=== PATIENT | male | born 1995 | race Caucasian/White ===

== ENCOUNTER → 2022-10-22 | Outpatient (CLI) | payer MEDICAID, SELFPAY ==
[2022-10-22 12:04] LABS: Absolute Lymphocyte Count 2.53 X10^3/uL (0.83-4.51); Absolute Neutrophil Count 5.1 X10^3/uL (2.0-7.7); Basophil# 0.05 X10^3/uL; Basophil% 0.6 % (0-1); Eosinophil# 0.53 X10^3/uL; Hematocrit 42.4 % (40-54); Lymphocyte # 2.53 X10^3/ul (0.83-4.51); Lymphocyte % 28.6 % (19-41); Mean Corpuscular Hgb 30.5 pg (27.0-32.0); Mean Corpuscular Volume 92.4 fL (80-94); Mean Platelet Vol. 8.7 fl (6.2-12.0); Monocyte# 0.55 X10^3/uL; Monocyte% 6.2 % (0-10); NRBC Flagged by Analyzer 0 % (0-5); Neutrophil # 5.13 X10^3/uL (2.7-7.7); Neutrophil % 57.9 % (47-70); Platelet Count 368 K/mm3 (150-450); RBC Distribution Width CV 12.7 % (11.6-14.6); RBC Distribution Width SD 43.3 fl (35.1-43.9); Red Blood Count 4.59 M/mm3 (4.6-6.2); White Blood Count 8.9 K/mm3 (4.4-11.0)
[2022-10-22 12:27] LABS: Hemoglobin A1c 5.4 % (3.8-5.6)
[2022-10-22 12:43] LABS: ALB/GLOB Ratio 1.2 RATIO (0.9-2.4); AST(SGOT) 28 U/L (15-37); Alanine Aminotransfer ALT/SGPT 76 U/L (16-61); Albumin, Serum 3.8 g/dL (3.2-5.0); Alkaline Phosphatase 74 U/L (45-117); Anion Gap 6 (5-15); BUN 14 mg/dL (7-18); BUN/Creat Ratio 15.2 RATIO (10-20); Calcium,Total 8.9 mg/dL (8.5-10.1); Chloride 107 mmol/L (98-107); Cholesterol 182 mg/dL (200); Creatinine, Serum 0.92 mg/dL (0.70-1.30); EST Glomerular Filtration Rate 103 mL/min (>60); Est Glom Filt Rate - Afr Amer 125 mL/min (>60); Globulin 3.1 g/dL (2.2-4.2); Glucose 99 mg/dL (74-106); High Density Lipoprotein 22 mg/dL; Potassium 3.7 mmol/L (3.5-5.1); Protein, Total 6.9 g/dL (6.4-8.2); Sodium Level 140 mmol/L (136-145); Triglycerides 583 mg/dL
== END | disposition home or self-care (01) ==
LOC: BFHLAB 09:41
PROVIDERS: PCP Family Medicine; Visit Provider Family Medicine
DX: Z00.00 Encounter for general adult medical examination without abnormal findings (principal)
CPT/HCPCS: 36415; 80053; 80061; 83036; 85025

== ENCOUNTER → 2023-04-22 | Outpatient (CLI) | payer MEDICAID, SELFPAY ==
[2023-04-22 12:33] LABS: Cholesterol 174 mg/dL (200); High Density Lipoprotein 26 mg/dL; Triglycerides 621 mg/dL
== END | disposition home or self-care (01) ==
PROVIDERS: PCP Family Medicine; Referring Provider Family Medicine; Visit Provider Family Medicine
DX: E78.1 Pure hyperglyceridemia (principal)
CPT/HCPCS: 36415; 80061

== ENCOUNTER → 2023-06-09 | Outpatient (CLI) | payer MEDICAID, SELFPAY ==
[2023-06-09 17:06] LABS: AST(SGOT) 16 U/L (15-37); Alanine Aminotransfer ALT/SGPT 48 U/L (16-61); Albumin, Serum 3.9 g/dL (3.2-5.0); Alkaline Phosphatase 80 U/L (45-117); Bilirubin, Direct 0.07 mg/dL (0.00-0.30); Cholesterol 137 mg/dL (200); Globulin 3.7 g/dL (2.2-4.2); High Density Lipoprotein 25 mg/dL; Protein, Total 7.6 g/dL (6.4-8.2); Thyroid Stim Hormone (TSH) 0.65 uIU/mL (0.358-3.74); Triglycerides 602 mg/dL
[2023-06-11 04:07] LABS: LDL, Direct 120295 49 mg/dL (0-99)
== END | disposition home or self-care (01) ==
LOC: BFHLAB 11:07
PROVIDERS: PCP Family Medicine; Referring Provider Family Medicine; Visit Provider Family Medicine
DX: E78.1 Pure hyperglyceridemia (principal); Z51.81 Encounter for therapeutic drug level monitoring
CPT/HCPCS: 36415; 80061; 80076; 83721; 84443

== ENCOUNTER → 2023-12-16 | Outpatient (CLI) | payer MEDICAID, SELFPAY ==
[2023-12-16 17:46] LABS: AST(SGOT) 19 U/L (15-37); Alanine Aminotransfer ALT/SGPT 40 U/L (16-61); Albumin, Serum 4.2 g/dL (3.2-5.0); Alkaline Phosphatase 77 U/L (45-117); Bilirubin, Direct 0.12 mg/dL (0.00-0.30); Cholesterol 107 mg/dL (200); Globulin 3.3 g/dL (2.2-4.2); High Density Lipoprotein 29 mg/dL; Protein, Total 7.5 g/dL (6.4-8.2); Triglycerides 233 mg/dL; Very Low Density Lipoprotein 47 mg/dL (5-40)
[2023-12-18 04:07] LABS: LDL, Direct 120295 54 mg/dL (0-99)
== END | disposition home or self-care (01) ==
LOC: BFHLAB 16:05
PROVIDERS: PCP Family Medicine; Referring Provider Family Medicine; Visit Provider Family Medicine
DX: E78.1 Pure hyperglyceridemia (principal); Z51.81 Encounter for therapeutic drug level monitoring
CPT/HCPCS: 36415; 80061; 80076; 83721

== ENCOUNTER → 2025-03-24 | Outpatient (CLI) | payer BC, SELFPAY ==
--- OUTSIDE RECORDS SUMMARY | 2025-03-24 18:52 | XMS RPT_ITS | CCD ---
Author Organization [employer]S SALES ADVISOR [facility] Care Team Providers Care Doorkeeper Name Role Phone RITA GALICIA Attending Unavailable MARIAH BRITT Primary Care Unavailable SISI QUINN Attending Unava ilable MARIAH BRITT Primary Care Unavailable Leticia Craig DO Primary Care Provider Mariah Britt Primary Care Unavailable Friend, Zbigniew Attending Unavailable Mariah Britt Referring Unavailable Mariah Britt Attending Unavailable Mariah Britt Primary Care Unavailable Mariah Britt Referring Unavailable Mariah Britt Attending Unavailable Mariah Britt Primary Care Unavailable Mariah Britt Referring Unavailable Allergies Allergy Classification Reported Allergen(s) Allergy Type Date of Onset Reaction(s) Facility (2 sources) BEE VENOM PROTEIN (HONEY BEE); Translations: [BEE VENOM PROTEIN (HONEY BEE)] Propensity to adverse reactions to drug (disorder) 4 [facility] Repository (1 source) CAT DANDER; Translations: [CAT DANDER] Propensity to adverse reactions to drug (disorder) [facility] Repository (1 source) Bees Allergy to substance 7 Hives, Shortness of Breath [facility] Medications Current Medications Medication Drug Class(es) Dates Sig (Normalized) Sig (Original) acetaminophen 325 mg / dextromethorphan hydrobromide 10 mg / guaiFENesin 200 mg / phenylephrine hydrochloride 5 mg oral tablet (4 sources) Uncompetitive Z-xghxsy-Q-aspartat e Receptor Antagonist, Sigma-1 Agonist, alpha-1 Adrenergic Agonist Start: 05-31-2016 Ubaoivwfe-Wa-Nwme marte-Guaifen (Tylenol Cold & Flu Severe Cplt) 1 EACH tablet Active 2 TABLET PO TWICE A DAY May 31, 2016 12:00am Albuterol (1 source) beta2-Adrenergic Agonist ALBUTEROL SULFATE (VENTOLIN HFA INHALATION) Inhale as instructed. Active amoxicillin 875 mg / clavulanate 125 mg oral tablet (4 sources) Penicillin-class Antibacterial Start: 05-31-2016 take 875 mg by mouth every twelve hours Amoxicillin-Pot Clavulanate Active 875 MG PO Q12H May 31, 2016 12:00am ARIPiprazole 10 mg oral tablet (1 source) Atypical Antipsychotic Start: 02-21-2017 ARIPiprazole (ABILIFY) 10 mg tablet 02/21/2017 Active budesonide 3 mg delayed release oral capsule (4 sources) Corticosteroid Start: 05-31-2016 Budesonide (Entocort Ec) 3 MG capsule Active 9 MG PO EVERY MORNING May 31, 2016 12:00am 12 hr buPROPion hydrochloride 100 mg extended release oral tablet (1 source) Aminoketone Start: 08-24-2020 buPROPion SR (WELLBUTRIN SR) 100 mg 12 hr tablet 08/24/2020 Active citalopram 40 mg oral tablet (1 source) Serotonin Reuptake Inhibitor take 1 tablet by mouth once daily citalopram (CELEXA) 40 mg tablet Take 40 mg by mouth once daily. Active loratadine 10 mg oral tablet (1 source) Start: 08-24-2020 loratadine (CLARITIN) 10 mg tablet 08/24/2020 Active omeprazole 40 mg delayed release oral capsule (1 source) Proton Pump Inhibitor Start: 03-11-2017 take 1 capsule by mouth once daily Omeprazole 40 mg capsule Take 1 capsule by mouth once daily. 10 capsule 03/11/2017 Active Problems Problem Classification Problem Date Documented Da te Episodic/Chronic Conditions associated with dizziness or vertigo (2 sources) Dizziness and giddiness; Translations: [Dizziness and giddiness] Onset: 11-03-2023 Episodic Other upper respiratory infections (2 sources) Acute upper respiratory infection, unspecified; Translations: [Acute upper respiratory infection, unspecified] Onset: 09-14-2023 Episodic Residual codes; unclassified (1 source) Hypersomnia, unspecified; Translations: [Hypersomnia, unspecified] Onset: 03-17-2025 Chronic Results Test Name Value Interpretation Reference Range Facility Basophil percentageOrdered B y: Mariah Britt on 12-16-2023 Bilirubin [Mass/Vol] 0.40 mg/dL 0.20-1.00 [facility] Comment on above: For patients on eltr ombopag therapy, use of Dimension [place] TBIL is not recommended. Cholesterol [Mass/Vol] 107 mg/dL <200 [facility] Comment on above: <200 mg/dL Desirable 200-240 mg/dL Borderline >240 mg/dL High Risk Protein [Mass/Vol] 7.5 g/dL 6.4-8.2 [facility] Triglyceride [Mass/Vol] 233 mg/dL <199 [facility] Comment on above: The drugs N-Acetylcy steine and Metamizole may falsely depress this assay.Serum Triglycerides Reference Interval Normal <150 mg/dL Borderline high 150 - 199 mg/dL High 200 - 499 mg/dL Very High > or = 500 mg/dL Cholesterol in LDL Direct as say [Mass/Vol]Ordered By: Mariah Britt on 12-16-2023 Cholesterol in LDL [Mass/Vol] 54 mg/dL 0-99 [facility] Comment on above: Performed at: [facility] [employer] [id number] Director: Dany Brizuela PhD, Phone: [phone] Direct bilirubinOrdered By: Mariah Britt on 12-16-2023 Bilirubin.direct [Mass/Vol] 0.12 mg/dL 0.00-0.30 [facility] - Chemistry and C hemistry - challengeOrdered By: Mariah Britt on 12-16-2023 ALP [Catalytic activity/Vol] 77 U/L 45-117 [facility] ALT [Catalytic activity/Vol] 40 U/L 16-61 [facility] Cholesterol in HDL [Mass/Vol] 29 mg/dL >40 [facility] Comment on above: The drugs N-Acetylcy steine and Metamizole may falsely depress this assay. Reference Range HDL <40 mg/dL Low HDL Cholesterol HDL >or= 60 mg/dL High HDL Cholesterol Cholesterol in LDL [Mass/Vol] 31 mg/dL 0-130 [facility] Globulin (S) [Mass/Vol] 3.3 g/dL 2.2-4.2 [facility] - Miscellaneous t estsOrdered By: Mariah Britt on 12-16-2023 Service comment (Unsp spec) [Interp] TNP [facility] Comment on above: Test not performed No Panel InformationOrdered By: Mariah Balwinder on 12-16-2023 VLDL Cholesterol 47 mg/dL 5-40 [facility] Thin prep Papanicolaou smear with manual screeningOrdered By: Mariah JuarezBalwinder on 12-16-2023 Thin prep Papanicolaou smear with manual screening 4.2 g/dL 3.2-5.0 [facility] Thin prep Papanicolaou smear with manual screening 19 U/L 15-37 [facility] XR CHEST PA/APon 11-03-2023 XR CHEST PA/AP EXAMINATION: XR CHEST PA/AP 11/03/2023 5:47 pm HISTORY: ORDERING SYSTEM PROVIDED HISTORY: Dizzy, TECHNOLOGIST PROVIDED HISTORY: Illness/Other Reason for exam: fever Cancer History: unknown Surgery, RadiationHistory: unknown Encounter Type: Initial Additional signs and symptoms: Pt reports dizziness and fever for the past few days. ORDERING SYSTEM PROVIDED DIAGNOSIS CODES: COMPARISON: None FINDINGS: Lungs are well expanded. The cardiomediastinal silhouette and pulmonary vasculature are normal. There is no pleural effusion, focal consolidation or pneumothorax. The osseous structures and soft tissues are without acute findings. IMPRESSION: No acute cardiopulmonary process. Workstation ID: [id number] Dictated by: CELE MONSIVAIS on FriNov 03, 2023 6:39:34 PM EDT Transcribed by: CELE MONSIVAIS on FriNov 03, 2023 6:39:34 PM EDT Finalized by: CELE MONSIVAIS on FriNov 03, 2023 6:39:34 PM EDT Normal [facility] Comment on above: Order Comment: Injur y/Trauma or Illness?:Illness/Other How long have you had these symptoms (acute/chronic)?:Acute Reason for exam?:fever History of cancer?:unknown Surgeries, chemotherapy, or radiation?:unknown Type of Exam?:Initial Additional signs and symptoms?:Pt reports dizziness and fever for the past few days. COVID-19, MOLECULARon 2023 SARS-CoV-2 (COVID-19) Ab IA Ql Not detected Normal Not Detected [facility] Comment on above: Result Comment: Test ing was performed using the [employer] ID NOW COVID-19 assay on the ID NOW platform. This test has not been approved for use in asymptomatic patients and its performance in this patient population has not been evaluated. Negative results do not rule out the presence of SARS-CoV-2/COVID-19. Basophil percentageOrdered B y: Mariah Britt on 06-09-2023 Bilirubin [Mass/Vol] 0.50 mg/dL 0.20-1.00 [facility] Comment on above: For patients on eltr ombopag therapy, use of Dimension [place] TBIL is not recommended. Cholesterol [Mass/Vol] 137 mg/dL <200 [facility] Comment on above: <200 mg/dL Desirable 200-240 mg/dL Borderline >240 mg/dL High Risk Protein [Mass/Vol] 7.6 g/dL 6.4-8.2 [facility] Triglyceride [Mass/Vol] 602 mg/dL <199 [facility] Comment on above: The drugs N-Acetylcy steine and Metamizole may falsely depress this assay. TRIGLYCERIDE IS GREATER THAN 400 mg/dL. LDL RESULT IS INVALID AND WILL NOT BE REPORTED.Serum Triglycerides Reference Interval Normal <150 mg/dL Borderline high 150 - 199 mg/dL High 200 - 499 mg/dL Very High > or = 500 mg/dL Cholesterol in LDL Direct as say [Mass/Vol]Ordered By: Mariah Britt on 06-09-2023 Cholesterol in LDL [Mass/Vol] 49 mg/dL 0-99 [facility] Comment on above: Performed at: [place] [id number] Director: Dany Brizuela PhD, Phone: [phone] Direct bilirubinOrdered By: Mariah Britt on 06-09-2023 Bilirubin.direct [Mass/Vol] 0.07 mg/dL 0.00-0.30 [facility] - Chemistry and C hemistry - challengeOrdered By: Mariah Britt on 06-09-2023 ALP [Catalytic activity/Vol] 80 U/L 45-117 [facility] ALT [Catalytic activity/Vol] 48 U/L 16-61 [facility] Globulin (S) [Mass/Vol] 3.7 g/dL 2.2-4.2 [facility] Laboratory - Miscellaneous t estsOrdered By: Mariah Britt on 06-09-2023 Service comment (Unsp spec) [Interp] [facility] Comment on above: Test not performed No Panel InformationOrdered By: Mariah Britt on 06-09-2023 Thyroid Stimulating Hormone (TSH) 0.65 uIU/mL 0.358-3.74 [facility] Serum or plasma albumin aj urement (mass/volume)Ordered By: Mariah Britt on 06-09-2023 Albumin [Mass/Vol] 3.9 g/dL 3.2-5.0 [facility] Serum or plasma cholesterol in HDL measurement (mass/volume)Ordered By: Mariah Britt on 06-09-2023 Cholesterol in HDL [Mass/Vol] 25 mg/dL >40 [facility] Comment on above: The drugs N-Acetylcy steine and Metamizole may falsely depress this assay. Reference Range HDL <40 mg/dL Low HDL Cholesterol HDL >or= 60 mg/dL High HDL Cholesterol Serum or plasma cholesterol in VLDL measurement (mass/volume)Ordered By: Mariah Britt on 06-09-2023 Cholesterol in VLDL [Mass/Vol] [facility] Comment on above: Test not performed Serum or plasma low density lipoprotein (LDL) cholesterol measurement (mass/volume)Ordered By: Mariah Britt on 06-09-2023 Cholesterol in LDL [Mass/Vol] [facility] Comment on above: Test not performed Thin prep Papanicolaou smear with manual screeningOrdered By: Mariah Britt on 06-09-2023 Thin prep Papanicolaou smear with manual screening 16 U/L 15-37 [facility] Basophil percentageOrdered B y: Mariah Britt on 04-22-2023 Cholesterol [Mass/Vol] 174 mg/dL <200 [facility] Comment on above: <200 mg/dL Desirable 200-240 mg/dL Borderline >240 mg/dL High Risk Triglyceride [Mass/Vol] 621 mg/dL <199 [facility] Comment on above: The drugs N-Acetylcy steine and Metamizole may falsely depress this assay. TRIGLYCERIDE IS GREATER THAN 400 mg/dL. LDL RESULT IS INVALID AND WILL NOT BE REPORTED.Serum Triglycerides Reference Interval Normal <150 mg/dL Borderline high 150 - 199 mg/dL High 200 - 499 mg/dL Very High > or = 500 mg/dL Serum or plasma cholesterol in HDL measurement (mass/volume)Ordered By: Mariah Britt on 04-22-2023 Cholesterol in HDL [Mass/Vol] 26 mg/dL >40 [facility] Comment on above: The drugs N-Acetylcy steine and Metamizole may falsely depress this assay. Reference Range HDL <40 mg/dL Low HDL Cholesterol HDL >or= 60 mg/dL High HDL Cholesterol Serum or plasma cholesterol in VLDL measurement (mass/volume)Ordered By: Mariah Britt on 04-22-2023 Cholesterol in VLDL [Mass/Vol] [facility] Comment on above: Test not performed Serum or plasma low density lipoprotein (LDL) cholesterol measurement (mass/volume)Ordered By: Mariah Britt on 04-22-2023 Cholesterol in LDL [Mass/Vol] [facility] Comment on above: Test not performed Absolute lymphocyte countOrd ered By: Dr. Britt on 10-22-2022 Lymphocytes Auto (Unsp spec) [#/Vol] 2.53 10*3/uL 0.83-4.51 [facility] Basophil percentageOrdered B y: Dr. Britt on 10-22-2022 Basophils/100 WBC (Bld) 0.6 % 0-1 [facility] Bilirubin [Mass/Vol] 0.40 mg/dL 0.20-1.00 [facility] Comment on above: For patients on eltr ombopag therapy, use of Dimension [place] TBIL is not recommended. Chloride [Moles/Vol] 107 mmol/L 98-107 [facility] Cholesterol [Mass/Vol] 182 mg/dL <200 [facility] Comment on above: <200 mg/dL Desirable 200-240 mg/dL Borderline >240 mg/dL High Risk Eosinophils/100 WBC (Bld) 6.0 % 0-5 [facility] Glucose [Mass/Vol] 99 mg/dL 74-106 [facility] Neutrophils (Bld) [#/Vol] 5.1 10*3/uL 2.0-7.7 [facility] Neutrophils/100 WBC (Bld) 57.9 % 47-70 [facility] Potassium [Moles/Vol] 3.7 mmol/L 3.5-5.1 [facility] Protein [Mass/Vol] 6.9 g/dL 6.4-8.2 [facility] Sodium [Moles/Vol] 140 mmol/L 136-145 [facility] Triglyceride [Mass/Vol] 583 mg/dL <199 [facility] Comment on above: The drugs N-Acetylcy steine and Metamizole may falsely depress this assay. TRIGLYCERIDE IS GREATER THAN 400 mg/dL. LDL RESULT IS INVALID AND WILL NOT BE REPORTED.Serum Triglycerides Reference Interval Normal <150 mg/dL Borderline high 150 - 199 mg/dL High 200 - 499 mg/dL Very High > or = 500 mg/dL WBC (Bld) [#/Vol] 8.9 10*3/uL 4.4-11.0 [facility] Blood erythrocytes count (nu mber/volume)Ordered By: Dr. Britt on 10-22-2022 RBC (Bld) [#/Vol] 4.59 10*6/uL 4.6-6.2 [facility] Blood hemoglobin measurement (mass/volume)Ordered By: Dr. Britt on 10-22-2022 Hemoglobin (Bld) [Mass/Vol] 14.0 g/dL 13.0-16.5 [facility] Blood lymphocytes/100 leukoc ytesOrdered By: Dr. Britt on 10-22-2022 Lymphocytes/100 WBC (Bld) 28.6 % 19-41 [facility] Blood monocytes/100 leukocyt esOrdered By: Dr. Britt on 10-22-2022 Monocytes/100 WBC (Bld) 6.2 % 0-10 [facility] Blood platelet mean volumeOr dered By: Dr. Britt on 10-22-2022 Platelet mean volume (Bld) [Entitic vol] 8.7 fL 6.2-12.0 [facility] Determination of erythrocyte mean corpuscular volume (MCV)Ordered By: Dr. Britt on 10-22-2022 MCV (RBC) [Entitic vol] 92.4 fL 80-94 [facility] Hematocrit Auto (Bld) [Volum e fraction]Ordered By: Dr. Britt on 10-22-2022 Hematocrit (Bld) [Volume fraction] 42.4 % 40-54 [facility] - Chemistry and C hemistry - challengeOrdered By: Dr. Britt on 10-22-2022 ALP [Catalytic activity/Vol] 74 U/L 45-117 [facility] ALT [Catalytic activity/Vol] 76 U/L 16-61 [facility] CO2 [Moles/Vol] 27.0 mmol/L 21.0-32.0 [facility] Globulin (S) [Mass/Vol] 3.1 g/dL 2.2-4.2 [facility] Urea nitrogen/Creatinine [Mass ratio] 15.2 mg/mg 10-20 [facility] - Hematology and Cell countsOrdered By: Dr. Britt on 10-22-2022 Erythrocyte distribution width (RBC) [Entitic vol] 43.3 fL 35.1-43.9 [facility] Erythrocyte distribution width (RBC) [Ratio] 12.7 % 11.6-14.6 [facility] Immature granulocytes/100 WBC (Bld) 0.700 % 0.0-0.9 [facility] Comment on above: IG% - Immature Granu locytes (promyelocytes, myelocytes and metamyelocytes) > 1% indicates that a LEFT SHIFT is Present. MCH (RBC) [Entitic mass] 30.5 pg 27.0-32.0 [facility] Nucleated RBC/100 WBC (Bld) [Ratio] 0 % 0-5 [facility] MCHC Auto (RBC) [Mass/Vol]Or dered By: Dr. Britt on 10-22-2022 MCHC (RBC) [Mass/Vol] 33.0 g/dL 32-36 [facility] No Panel InformationOrdered By: Dr. Britt on 10-22-2022 Estimated GFR (MDRD) Amer 125 mL/min >60 [facility] Comment on above: GFR Calc Estimated GFR (MDRD) Non-Af Amer 103 mL/min >60 [facility] Comment on above: Non- GFR Calc Platelets bldOrdered By: Dr. Britt on 10-22-2022 Platelets (Bld) [#/Vol] 368 10*3/uL 150-450 [facility] Serum or plasma albumin aj urement (mass/volume)Ordered By: Dr. Britt on 10-22-2022 Albumin [Mass/Vol] 3.8 g/dL 3.2-5.0 [facility] Serum or plasma albumin/glob ulin mass ratioOrdered By: Dr. Britt on 10-22-2022 Albumin/Globulin [Mass ratio] 1.2 {ratio} 0.9-2.4 [facility] Serum or plasma calcium aj urement (mass/volume)Ordered By: Dr. Britt on 10-22-2022 Calcium [Mass/Vol] 8.9 mg/dL 8.5-10.1 [facility] Serum or plasma cholesterol in HDL measurement (mass/volume)Ordered By: Dr. Britt on 10-22-2022 Cholesterol in HDL [Mass/Vol] 22 mg/dL >40 [facility] Comment on above: The drugs N-Acetylcy steine and Metamizole may falsely depress this assay. Reference Range HDL <40 mg/dL Low HDL Cholesterol HDL >or= 60 mg/dL High HDL Cholesterol Serum or plasma cholesterol in VLDL measurement (mass/volume)Ordered By: Dr. Britt on 10-22-2022 Cholesterol in VLDL [Mass/Vol] [facility] Comment on above: Test not performed Serum or plasma creatinine m easurement (mass/volume)Ordered By: Dr. Britt on 10-22-2022 Creatinine [Mass/Vol] 0.92 mg/dL 0.70-1.30 [facility] Comment on above: The validity of the calculated GFR & GFRAA in patients over 70 years has not been determined. Clinical correlation is essential. Serum or plasma low density lipoprotein (LDL) cholesterol measurement (mass/volume)Ordered By: Dr. Britt on 10-22-2022 Cholesterol in LDL [Mass/Vol] [facility] Comment on above: Test not performed Serum or plasma urea nitroge n measurement (mass/volume)Ordered By: Dr. Britt on 10-22-2022 Urea nitrogen [Mass/Vol] 14 mg/dL 7-18 [facility] Thin prep Papanicolaou smear with manual screeningOrdered By: Dr. Britt on 10-22-2022 Thin prep Papanicolaou smear with manual screening 28 U/L 15-37 [facility] Thin prep Papanicolaou smear with manual screening 6 5-15 [facility] Whole blood hemoglobin A1c/t otal hemoglobin ratio (mass fraction)Ordered By: Dr. Britt on 10-22-2022 HbA1c (Bld) [Mass fraction] 5.4 % 3.8-5.6 [facility] Comment on above: Normal < 5.7 % Predi abetic 5.7 - 6.4 % Diabetic >or= 6.5 % Please note range changes. XR KNEE 2V AP/LAT RTon 03-13 XR KNEE 2V AP/LAT RT * * *Final Report* * * DATE OF EXAM: Mar 13 2021 4:36PM WOX [id number] - XR KNEE 2V AP/LAT RT / PROCEDURE REASON: patella pain * * * * Physician Interpretation * * * * EXAM TITLE: XR KNEE 2V AP/LAT RT EXAM DATE/TIME: 03/13/2021 4:36 PM COMPARISON: None. CLINICAL INDICATION/HISTORY: Pain. TECHNIQUE: AP and lateral views of the right knee are presented. FINDINGS: No acute fractures or subluxations are noted. The joint spaces are well preserved. There is no evidence of joint effusion. The mineralization of the bones is normal. There is no significant soft tissue swelling. IMPRESSION: Negative right knee x-ray. Gear Finisher: TUAN Transcribe Date/Time: Mar 13 2021 4:38P Dictated by : ZOFIA IZQUIERDO MD This examination was interpreted and the report reviewed and electronically signed by: ZOFIA IZQUIERDO MD on Mar 13 2021 4:39PM EST [id number] Normal [facility] XR Knee - right AP and Later alisha 03-13-2021 IMPRESSION: Negative right knee x-ray. Gear Finisher: PSCB Transcribe Date/Time: Mar 13 2021 4:38P Dictated by : ZOFIA IZQUIERDO MD This examination was interpreted and the report reviewed and electronically signed by: ZOFIA IZQUIERDO MD on Mar 13 2021 4:39PM EST DIVISION OF RADIOLOGY * * *Final Report* * * DATE OF EXAM: Mar 13 2021 4:36PM WOX [id number] - XR KNEE 2V AP/LAT RT / PROCEDURE REASON: patella pain * * * * Physician Interpretation * * * * EXAM TITLE: XR KNEE 2V AP/LAT RT EXAM DATE/TIME: 03/13/2021 4:36 PM COMPARISON: None. CLINICAL INDICATION/HISTORY: Pain. TECHNIQUE: AP and lateral views of the right knee are presented. FINDINGS: No acute fractures or subluxations are noted. The joint spaces are well preserved. There is no evidence of joint effusion. The mineralization of the bones is normal. There is no significant soft tissue swelling. DIVISION OF RADIOLOGY Provider, [facility] - 03/13/2021 * * *Final Report* * * DATE OF EXAM: Mar 13 2021 4:36PM WOX [id number] - XR KNEE 2V AP/LAT RT / PROCEDURE REASON: patella pain * * * * Physician Interpretation * * * * EXAM TITLE: XR KNEE 2V AP/LAT RT EXAM DATE/TIME: 03/13/2021 4:36 PM COMPARISON: None. CLINICAL INDICATION/HISTORY: Pain. TECHNIQUE: AP and lateral views of the right knee are presented. FINDINGS: No acute fractures or subluxations are noted. The joint spaces are well preserved. There is no evidence of joint effusion. The mineralization of the bones is normal. There is no significant soft tissue swelling. IMPRESSION IMPRESSION: Negative right knee x-ray. Gear Finisher: TUAN Transcribe Date/Time: Mar 13 2021 4:38P Dictated by : ZOFIA IZQUIERDO MD This examination was interpreted and the report reviewed and electronically signed by: ZOFIA IZQUIERDO MD on Mar 13 2021 4:39PM EST [facility] Radiology Study observation (narrative) Caio steve [facility] XR Knee - right AP and Later alOrdered By: [facility] Provider on 03-13-2021 [facility] Vital Signs Date Time Vital Sign Value Performing Clinician Cindyi denia 10-22-2022 09:38-0400 Body height 193.04 cm [facility] Encounters Encounter Date Encounter Type Care Provider Facility Start: 03-24-2025 [facility] Facility: [facility] Start: 09-14-2024 [facility] Facility: [facility] Start: 08-17-2024 ambulatory [facility] Facility: [facility] Start: 12-16-2023 End: 12-16-2023 ambulatory [facility] Work Phone: Start: 12-16-2023 End: 12-16-[address] [facility] Start: 11-03-2023 End: 11-03-2023 Emergency department patient visit SISI MERAZ KAI [facility] Start: 09-14-2023 End: 09-14-2023 Emergency department patient visit RITA GALICIA [facility] Start: 06-09-2023 End: 06-09-2023 ambulatory [facility] Work Phone: Start: 06-09-2023 End: 06-09-[address] [facility] Start: 04-22-2023 End: 04-22-2023 ambulatory [facility] Work Phone: Start: 04-22-2023 End: 04-22-[address] [facility] Start: 10-22-2022 End: 10-22-2022 ambulatory [facility] Work Phone: Start: 10-22-2022 End: 10-22-[address] [facility] Start: 03-13-2021 End: 03-13-2021 Subsequent hospital visit by physician [facility] Work Phone: Radiology Procedures Date Procedure Procedure Detail Performing Clinician Start: 03-13-2021 Radiologic examinati on knee 1/2 views [facility] Provider Plan of Treatment Date Care Activity Detail Author Start: 09-14-2028 Urine microalbumin profile DTa P,Tdap,Td Vaccine (6 - Td or Tdap) [facility] Start: 04-11-2024 Covid-19 Vaccine ( season) Covid-19 Vaccine () [facility] Start: 04-11-2024 Influenza vaccination Influenza Vacc ine (#1) [facility] Start: 2011 Anxiety Screening Anxiety Screening [facility] Start: 2011 Depression Screening [facility] Start: 2011 Hepatitis C screening Hepatitis C Sc ramakrishna [facility] Start: 2011 HIV [facility] Immunizations Immunization Date Immunization Notes Care Provider Maria Eugenia daily 09-14-2018 tetanus toxoid, redu [place]go diphtheria toxoid, and acellular pertussis vaccine, adsorbed Xr [place] Work Phone: [facility] Payers Date Payer Category Payer Self-pay 2024 Unknown [id number] 2016 Unknown [id number] 2016 Medicaid [employer] [facility] [id number] 2016-2022 [address] [place] [address] Medicaid [id number] 1993 Unknown [id number] 1993 Unknown [id number] Unknown [id number] Unknown [id number] Unknown [id number] Social History Date Type Detail Facility Start: 05-31-2016 [facility] Start: 1995 Sex Assigned At Male [facility] Start: 12-24-1999 [facility] Start: 12-24-1999 History of tobacco use Cigarette Smo ker [facility] Start: 12-23-2016 End: 07-19-2020 Cigarettes smoked current (pack per day) - Reported 0.5 [facility] Start: 12-23-2016 Tobacco use and exposure Smokeless tobacco non-user [facility] Start: 09-11-2020 Alcoholic beverage intake Current non-drinker of alcohol (finding) [facility] Start: 07-19-2020 End: 09-11-2020 Tobacco use panel [facility] National Score (1-10 0), lower number is lower risk Not on file [facility] Start: 1995 Sex assigned at Not on file [facility] Progress note 03-13-2021 Note Date & Type Note Facility 03-13-2021 Note HNO ID: [id number] Author: RT Ranjit(R) Service: Radiology Author Type: Foil Spinner Type: Progress Notes Filed: 03/13/2021 4:36 PM Note Text: Radiology Service Progress Note PATIENT NAME: William Cantrell DATE OF SERVICE: March 13, 2021 TIME: 4:36 PM PATIENT IDENTITY VERIFICATION COMPLETED USING TWO (2) IDENTIFIERS: Name and Date of confirmed by patient verbally. FALL SCREENING: Has the patient had 2 falls in the last year or 1 fall with injury or currently using an Ambulatory Assistive Device (Walker, Cane, Wheelchair, Crutches, etc.)? No PATIENT GENDER DATA: Male PATIENT RELEVANT IMPLANT DATA REVIEWED: Not Applicable RADIOLOGY DEPARTMENT: General X-ray: Exam(s) Completed: Lower Extremity X-Ray(s): Knee, AP / LAT Right and Wt. Bearing PERIPHERAL IV DATA: Not applicable SIGNED BY: RT Ranjit(R) March 13, 2021 4:36 PM [facility] History of Present illness Narrative 03-13-2021 Arianne Sagastume RT(R) - 03/13/2021 4:10 PM EDT Note Date & Type Note Facility 03-13-2021 History of Presen t illness Narrative Radiology Service Progress Note PATIENT NAME: William Cantrell DATE OF SERVICE: March 13, 2021 TIME: 4:36 PM PATIENT IDENTITY VERIFICATION COMPLETED USING TWO (2) IDENTIFIERS: Name and Date of confirmed by patient verbally. FALL SCREENING: Has the patient had 2 falls in the last year or 1 fall with injury or currently using an Ambulatory Assistive Device (Walker, Cane, Wheelchair, Crutches, etc.)? No PATIENT GENDER DATA: Male PATIENT RELEVANT IMPLANT DATA REVIEWED: Not Applicable RADIOLOGY DEPARTMENT: General X-ray: Exam(s) Completed: Lower Extremity X-Ray(s): Knee, AP / LAT Right and Wt. Bearing PERIPHERAL IV DATA: Not applicable SIGNED BY: RT Ranjit(R) March 13, 2021 4:36 PM documented in this encounter [facility] Evaluation note Note Date & Type Note Facility Evaluation note No assessment information availa [facility] Work Phone: Summary Purpose Family History No Family History Records FoundNo Family History Records FoundNo Family History Records Found Advance Directives No Advanced Directives Records Found Advance Directive Response Recorded Date/ Time Living Will No May 31 3:32pm Power of Reimbursement Consultant No May 31, 2016 3:32pm Additional Source Comments (unrecognized sect ion and content) No Status Records FoundNo Status Records FoundNo Status Records Found INFORMATION SOURCE (unrecogn ized section and content) DATE CREATED AUTHOR 09/11/2021 [facility] DATE CREATED AUTHOR AUTHOR'S ORGANIZ ATION 11/13/2023 [facility] DATE CREATED AUTHOR AUTHOR'S ORGANIZ ATION 03/20/2025 [facility] Care Teams (unrecognized sec tion and content) Team Status: Active Member Role Status Dates Dr. Darrian Cormier MD Family Provider Active Dr. Mariah Britt DO Primary Care Provider Active Team Status: Inactive Member Role Status Dates Dr. Mariah Britt DO Primary Care Provider, Attendin g Provider Active Team Status: Inactive Member Role Status Dates Dr. Mariah Britt DO Primary Care Prov ider, Attending Provider, Referring Provider Active Team Status: Active Member Role Status Dates Dr. Lorenzo Cormier MD Family Provider Active Dr. Mariah Britt DO Primary Care Provider Active Doorkeeper Relationship Specialty Start Date End Date Leticia Craig DO [address] [facility] [place] [address] (work) PCP - General Family Medicine 09/11/20 Goals (unrecognized section and content) Goals may be documented in a n alternate sectionGoals may be documented in an alternate sectionGoals may be documented in an alternate sectionGoals may be documented in an alternate section Source Comments (unrecognize d section and content) In the event this informatio n is protected by the Federal Confidentiality of Alcohol and Drug Abuse Patient Records regulations: The Federal rules restrict any use of the information to criminally investigate or prosecute any alcohol or drug abuse patient.[facility] FOR RECORDS PERTAINING TO PATIENTS WHO ARE OR HAVE BEEN ENROLLED IN A CHEMICAL DEPENDENCY/SUBSTANCEABUSE PROGRAM, SOME INFORMATION MAY BE OMITTED. This clinical summary was aggregated from multiple sources. Caution should be exercised in using it in the provision of clinical care. This summary normalizes information from multiple sources, and as a consequence, information in this document may materially change the coding, format and clinical context of patient data. In addition, data may be omitted in some cases. CLINICAL DECISIONS SHOULD BE BASED ON THE PRIMARY CLINICAL RECORDS. [employer] [facility]. provides no warranty or guarantee of the accuracy or completeness of information in this document.
== END | disposition home or self-care (01) ==
PROVIDERS: PCP Family Medicine; Referring Provider Family Medicine; Visit Provider Family Medicine
DX: G47.10 Hypersomnia, unspecified (principal)
CPT/HCPCS: 95806

== ENCOUNTER → 2025-04-22 | Outpatient (CLI) | payer BC, SELFPAY | END | disposition home or self-care (01) | PROVIDERS: PCP Family Medicine; Referring Provider Family Medicine; Visit Provider Family Medicine | DX: G47.33 Obstructive sleep apnea (adult) (pediatric) (principal) | CPT/HCPCS: 95811 ==

== ENCOUNTER → 2025-05-10 | Outpatient (CLI) | payer BC, SELFPAY | END | disposition home or self-care (01) | LOC: SL 09:24 | PROVIDERS: PCP Family Medicine; Visit Provider Family Medicine | DX: Z46.89 Encounter for fitting and adjustment of other specified devices (principal) ==